=== PATIENT | female | born 1925 | race Caucasian/White ===

== ENCOUNTER 2016-04-29 15:35 | Outpatient (CLI) | END 2016-04-29 15:36 | disposition home or self-care (01) ==

== ENCOUNTER 2016-06-18 14:40 | Outpatient (CLI) | payer MEDICARE, OTHER | END 2016-06-18 14:41 | disposition home or self-care (01) | DX: R06.09 Other forms of dyspnea (principal) ==

== ENCOUNTER 2016-10-11 10:36 | Outpatient (CLI) | payer MEDICARE, OTHER | END 2016-10-11 10:37 | disposition critical access hospital (66) | LOC: EMS 10:36 | PROVIDERS: ATTEND Surgery | DX: M25.552 Pain in left hip (principal); W01.10XA Fall on same level from slipping, tripping and stumbling with subsequent striking against unspecified object, initial encounter; Y92.9 Unspecified place or not applicable | CPT/HCPCS: A0425; A0429 ==

== ENCOUNTER 2016-10-11 11:10 | Emergency (ER) | payer MEDICARE, OTHER ==
--- NOTE | 2016-10-11 11:52 | ED Physician Documentation ---
History of Present Illness - Stated complaint Stated Complaint: GLF - Chief complaint Chief Complaint: Ext Problem - Additonal information Additional information: hx from pt 89 female in garage trying to move a cement block and hit her foot causing her to fall on her right side denies hitting her head but has a throbbing DOUGHERTY (also had before the fall) and mild neck pain (also had before the fall) although she fell on the right side her pain id to L hip and thigh down to the knee otherwise was well recently - no fever cough NVD urinary sx Review of Systems Constitutional: denies: Fever, Chills Ears: reports: Loss of hearing (very UNGA - chronic) Cardiac: denies: Chest pain / pressure, Palpitations Respiratory: denies: Dyspnea, Cough GI: denies: Abdominal Pain, Nausea, Vomiting, Diarrhea Musculoskeletal: reports: Neck pain, Extremity pain, Joint pain. denies: Back pain Neurologic: reports: Headache. denies: Focal weakness, Numbness PD PAST MEDICAL HISTORY - Past Medical History Cardiovascular: Hypertension - Past Surgical History Past Surgical History: No - Present Medications Home Medications: Ambulatory Orders Medication Instructions Recorded Confirmed Atenolol 25 mg PO DAILY 09/23/15 10/11/16 Furosemide [Lasix] 120 mg PO DAILY 09/23/15 10/11/16 Lisinopril 40 mg PO DAILY 09/23/15 10/11/16 Levothyroxine [Synthroid] 75 mcg PO QDAC 10/11/16 10/11/16 - Allergies Allergies/Adverse Reactions: Allergies Allergy/AdvReac Type Severity Reaction Status Date / Time morphine Allergy Unknown Verified 10/11/16 11:22 - Social History Does the pt smoke?: No Smoking Status: Never smoker Does the pt drink ETOH?: No Does the pt have substance abuse?: No Results - Vitals Vitals: Vital Signs - 24 hr 10/11/16 10/11/16 11:11 12:59 Temperature 36.6 C Heart Rate 65 65 Respiratory 20 20 Rate Blood Pressure 184/68 H 179/53 H O2 Saturation 97 96 Oxygen O2 Source Room air - Rads (name of study) hip/pelvis Radiology: See rad report (no change) knee Radiology: See rad report (cortical irreg lateral fem condyle could be a fx - rec CT) femur Radiology: See rad report (neg) CT CS Radiology: See rad report (degen changes, lesion L thyroid rec sono for fup) CTH Radiology: See rad report (no acute) PD MEDICAL DECISION MAKING - ED course ED course: femur CT negative for fx too Departure - Departure Disposition: Home, Self Care Clinical Impression: Contusion, hip Qualifiers: Encounter type: initial encounter Laterality: left Qualified Code(s): S70.02XA - Contusion of left hip, initial encounter Knee contusion Qualifiers: Encounter type: initial encounter Laterality: left Qualified Code(s): S80.02XA - Contusion of left knee, initial encounter Condition: Good Instructions: ED Contusion Lower Ext Comments: The CT scans showed no new abnormality in your brain skull or spine - but there is a lesion in your thyroid ands the radiologist recommends that you follow up with your PMD for an ultrasound of the thyroid Thankfully the imaged of your hip femur and knee do not show a fracture either. The hardware does not appear loosened And there is no dicloation Wear the EUGENIO for support and to decrease the swelling Ice Tylenol as needed for the pain Always use the wlaker when transferring and ambulating And please follow up with your PMD about your blood pressure - it was high today
--- NOTE | 2016-10-11 12:48 | CT Preliminary Report ---
Exam: CT Head W/O IMPRESSION: Generalized age-related cortical atrophic changes without evidence of acute intracranial abnormality. [facility] SITE ID: [id number]
--- NOTE | 2016-10-11 12:51 | CT Report ---
EXAM: CT HEAD EXAM DATE: 10/11/2016 12:37 PM. CLINICAL HISTORY: Fall throbbing DOUGHERTY. COMPARISON: 09/23/2015. TECHNIQUE: Multiaxial CT images were obtained from the foramen magnum to the vertex. IV contrast: Non e. Reformats: Coronal. In accordance with CT protocol optimization, one or more of the following dose reduction techniques w ere utilized for this exam: automated exposure control, adjustment of mA and/or KV based on patient s ize, or use of iterative reconstructive technique. FINDINGS: Parenchyma: No intraparenchymal hemorrhage. No evidence of mass, midline shift, or CT findings of acu te infarction. Valdivia-white differentiation is distinct. Extraaxial Spaces: Normal for age. No subdural or epidural collections identified. Ventricles: The ventricles and cortical sulci are enlarged, consistent with age-related tissue loss. Sinuses: Imaged paranasal sinuses, orbits, and mastoids show no significant abnormality. Bones: No evidence of fracture or calvarial defect. Other: Diffuse chronic microangiopathic white matter changes are evident. IMPRESSION: Generalized age-related cortical atrophic changes without evidence of acute intracranial abnormality. [facility] Referring Provider Line: [phone] SITE ID: [id number]
--- NOTE | 2016-10-11 12:55 | CT Preliminary Report ---
Exam: CT Cervical Spine W/O Impression: Degenerative changes of the cervical spine without evidence of a fracture or dislocation. Low density lesion in the left lobe of the thyroid gland. Recommend dedicated thyroid ultrasound for further evaluation. Atherosclerosis of the great vessels. [facility] SITE ID: [id number]
--- NOTE | 2016-10-11 12:58 | CT Report ---
EXAM: CT CERVICAL SPINE WITHOUT CONTRAST DATE: 10/11/2016 12:37 PM HISTORY: Fall distracting injury. COMPARISONS: None. TECHNIQUE: Thin-section axial images were acquired of the cervical spine without contrast. Post-proce ssing: Coronal and sagittal reformats. Other: None. In accordance with CT protocol optimization, one or more of the following dose reduction techniques w ere utilized for this exam: automated exposure control, adjustment of mA and/or KV based on patient s ize, or use of iterative reconstructive technique. FINDINGS: There are mild diffuse degenerative changes of the cervical spine. There is no evidence of an acute f racture or dislocation. The visualized mastoid air cells and paranasal sinuses are clear. The visuali zed soft tissues are symmetric. There is an ill-defined area of decreased density in the left lobe of the thyroid gland measuring approximately 8 mm (image 78 of series 3). Recommend further characteriz ation with an ultrasound of the thyroid for further evaluation. The lung apices are clear. 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 Impression: Degenerative changes of the cervical spine without evidence of a fracture or dislocation. Low density lesion in the left lobe of the thyroid gland. Recommend dedicated thyroid ultrasound for further evaluation. Atherosclerosis of the great vessels. [facility] Referring Provider Line: [phone] SITE ID: [id number]
--- NOTE | 2016-10-11 13:01 | XRAY Preliminary Report ---
Exam: XR Knee 4 View LT Impression: Cortical irregularity involving the lateral femoral condyle that may represent a fracture or degenerative changes. If further characterization is needed, a CT or MRI may be beneficial. 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 [facility] SITE ID: [id number]
--- NOTE | 2016-10-11 13:03 | XRAY Report ---
EXAM: RIGHT/LEFT KNEE RADIOGRAPHY EXAM DATE: 10/11/2016 12:33 PM. CLINICAL HISTORY: Fall L knee pain. COMPARISON: None. TECHNIQUE: 3 views. FINDINGS: There is cortical irregularity involving the lateral femoral condyle that may represent a fracture or degenerative changes. Joint space narrowing osteophyte formation and subchondral sclerosis is seen involving all 3 compartm ents of the knee and most advanced in the medial compartment. Impression: Cortical irregularity involving the lateral femoral condyle that may represent a fracture or degenerative changes. If further characterization is needed, a CT or MRI may be beneficial. 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 [facility] Referring Provider Line: [phone] SITE ID: [id number]
--- NOTE | 2016-10-11 13:04 | XRAY Preliminary Report ---
Exam: XR Hip w/Pelvis 2-3V LT Impression: No significant change when compared to the previous study. [facility] SITE ID: [id number]
--- NOTE | 2016-10-11 13:06 | XRAY Report ---
EXAM: LEFT HIP AND PELVIS RADIOGRAPHY EXAM DATE: 10/11/2016 12:33 PM. HISTORY: Fall L hip pain shortened. COMPARISONS: [id number]. TECHNIQUE: 1 view of the pelvis and 1 view of the hip. 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 No acute fracture is seen. There is redemonstration of degenerative changes of the lumbar spine. Impression: No significant change when compared to the previous study. [facility] Referring Provider Line: [phone] SITE ID: [id number]
--- NOTE | 2016-10-11 13:07 | XRAY Preliminary Report ---
Exam: XR Femur 2V LT Impression: Moderate to severe degenerative changes of the left knee. No evidence of a displaced femur fracture. [facility] SITE ID: [id number]
--- NOTE | 2016-10-11 13:10 | XRAY Report ---
EXAM: LEFT FEMUR RADIOGRAPHY EXAM DATE: 10/11/2016 12:33 PM. CLINICAL HISTORY: Fall L leg pain. COMPARISON: None. TECHNIQUE: 4 views. FINDINGS: Moderate to severe degenerative changes of the left knee are noted. There are postoperative changes c onsistent with a left hip arthroplasty. No displaced fracture is identified. Impression: Moderate to severe degenerative changes of the left knee. No evidence of a displaced femur fracture. [facility] Referring Provider Line: [phone] SITE ID: [id number]
--- NOTE | 2016-10-11 15:42 | CT Preliminary Report ---
Exam: CT Lower Extremity Left W/O IMPRESSION: 1. No acute fracture. 2. Severe tricompartmental osteoarthritis. 3. Small joint effusion and small popliteal cyst. [facility] SITE ID: [id number]
--- NOTE | 2016-10-11 15:45 | CT Report ---
EXAM: LEFT KNEE CT WITHOUT CONTRAST EXAM DATE: 10/11/2016 03:24 PM. CLINICAL HISTORY: Possible lateral femoral condyle fracture. COMPARISON: Radiograph 10/11/2016. TECHNIQUE: Thin-section axial images were acquired of the knee without contrast. Post-processing: Cor onal and sagittal reformats. Other: None. In accordance with CT protocol optimization, one or more of the following dose reduction techniques w ere utilized for this exam: automated exposure control, adjustment of mA and/or KV based on patient s ize, or use of iterative reconstructive technique. FINDINGS: Bones and articular surfaces: No acute fracture. Severe joint space narrowing in the medial and later al compartments. Associated subchondral sclerosis. Tricompartmental marginal osteophyte formation mos t pronounced in the lateral compartment. Moderate joint space narrowing at the patellofemoral compart ment laterally. Some lateral tracking of the patella. Small joint effusion. Small popliteal cyst. Musculature: Some atrophy involving portions of the peroneal musculature as well as the tibialis post erior. Prominent fatty atrophy involving portions of the gastrocnemius. Other: None IMPRESSION: 1. No acute fracture. 2. Severe tricompartmental osteoarthritis. 3. Small joint effusion and small popliteal cyst. [facility] Referring Provider Line: [phone] SITE ID: [id number]
[2016-10-11] MEDS ORDERED: ACETAMINOPHEN 325 MG TABLET PO STA (16:37)
[2016-10-11] MEDS ORDERED: ACETAMINOPHEN 325 MG TABLET PO ONE (16:43)
[2016-10-11 17:26] VITALS: BP 184/86
== END 2016-10-11 17:17 | disposition home or self-care (01) ==
LOC: EDUNIT# → ED 11:10
DX: S70.02XA Contusion of left hip, initial encounter (principal); S80.02XA Contusion of left knee, initial encounter; W01.0XXA Fall on same level from slipping, tripping and stumbling without subsequent striking against object, initial encounter; Y92.015 Private garage of single-family (private) house as the place of occurrence of the external cause; I10 Essential (primary) hypertension
CPT/HCPCS: 70450; 72125; 73502; 73552; 73564; 73700; 99283; A9270

== ENCOUNTER 2016-10-15 14:05 | Outpatient (CLI) | payer MEDICARE, OTHER ==
[2016-10-15 19:25] LABS: BILIRUBIN,URINE NEGATIVE (NEGATIVE); PH,URINE 5.5 PH (5.0-7.5)
[2016-10-15 19:34] LABS: UA w/ MICROSCOPIC CHARGE YES
[2016-10-15 19:37] LABS: UR CULTURE IF IND INDICATED; WBC,URINE >25 /HPF (0-5)
== END 2016-10-15 14:06 | disposition home or self-care (01) ==
LOC: LAB.R 14:05
PROVIDERS: ATTEND Family Medicine
DX: R30.0 Dysuria (principal)
CPT/HCPCS: 81001; 81003; 87077; 87086

== ENCOUNTER 2016-10-16 08:04 | Outpatient (CLI) | payer MEDICARE, OTHER | END 2016-10-16 08:05 | disposition short-term general hospital (02) | LOC: EMS 08:04 | PROVIDERS: ATTEND Surgery | DX: R06.00 Dyspnea, unspecified (principal); R11.2 Nausea with vomiting, unspecified | CPT/HCPCS: A0425; A0429; A0888 ==

== ENCOUNTER 2017-05-18 08:00 | Outpatient (CLI) | payer MEDICARE, OTHER ==
[2017-05-18 19:20] LABS: BASOPHILS % (AUTO) 0.4 %; EOSINOPHILS # (AUTO) 0.1 10^3/uL (0.0-0.7); EOSINOPHILS % (AUTO) 1.5 %; HGB - HEMOGLOBIN 13.2 g/dL (12.0-16.0); LYMPHOCYTES # (AUTO) 1.1 10^3/uL (1.5-3.5); LYMPHOCYTES % (AUTO) 16.1 %; MEAN CORPUSCULAR HEMOGLOBIN 29.8 pg (27.0-31.0); MEAN CORPUSCULAR HGB CONC 33.1 g/dL (32.0-36.0); MEAN CORPUSCULAR VOLUME 89.9 fL (81.0-99.0); MEAN PLATELET VOLUME 10.6 fL (7.9-10.8); MONOCYTES # (AUTO) 0.6 10^3/uL (0.0-1.0); MONOCYTES % (AUTO) 9.5 %; NEUTROPHILS # (AUTO) 4.9 10^3/uL (1.5-6.6); NEUTROPHILS % (AUTO) 72.5 %; PLT - PLATELET COUNT 122 10^3/uL (130-450); RED BLOOD COUNT 4.43 10^6/uL (4.20-5.40); RED CELL DISTRIBUTION WIDTH 14.2 % (12.0-15.0); WHITE BLOOD COUNT 6.8 x10^3/uL (4.8-10.8)
[2017-05-18 19:56] LABS: ALBUMIN 4.2 g/dL (3.2-5.5); ALBUMIN/GLOBULIN RATIO 1.4 (1.0-2.2); ALKALINE PHOSPHATASE 53 IU/L (42-121); ALT ALANINE AMINOTRANSFERASE 12 IU/L (10-60); AST ASPARTATE AMINOTRANSFERASE 17 IU/L (10-42); BILIRUBIN,TOTAL 0.5 mg/dL (0.2-1.0); BUN - BLOOD UREA NITROGEN 38 mg/dL (6-20); CALCIUM 9.6 mg/dL (8.5-10.3); CARBON DIOXIDE - CO2 27 mmol/L (21-32); CHLORIDE 102 mmol/L (101-111); CRP - C-REACTIVE PROTEIN < 1.0 mg/dL (0-1.0); GFR - MDRD 52 (>89); GLUCOSE 116 mg/dL (70-100); SODIUM 139 mmol/L (135-145); TOTAL PROTEIN 7.3 g/dL (6.7-8.2)
== END 2017-05-18 08:01 | disposition home or self-care (01) ==
LOC: LAB.WCP 08:00
PROVIDERS: ATTEND Family Medicine
DX: R42 Dizziness and giddiness (principal)
CPT/HCPCS: 36415; 80053; 85025; 85651; 86140

== ENCOUNTER 2017-06-08 07:33 | Outpatient (CLI) | payer MEDICARE, OTHER | END 2017-06-08 07:34 | disposition short-term general hospital (02) | LOC: EMS 07:33 | PROVIDERS: ATTEND Surgery | DX: M54.5 Low back pain (principal); M79.605 Pain in left leg | CPT/HCPCS: A0425; A0429; A0888 ==

== ENCOUNTER 2017-07-21 09:31 | Outpatient (CLI) | payer MEDICARE, OTHER | END 2017-07-21 09:32 | disposition short-term general hospital (02) | LOC: EMS 09:31 | PROVIDERS: ATTEND Surgery | DX: R42 Dizziness and giddiness (principal) | CPT/HCPCS: A0425; A0429; A0888 ==

== ENCOUNTER 2017-08-01 10:33 | Outpatient (CLI) | payer MEDICARE, OTHER | END 2017-08-01 10:34 | disposition short-term general hospital (02) | LOC: EMS 10:33 | PROVIDERS: ATTEND Surgery | DX: R51 Headache (principal); R26.81 Unsteadiness on feet | CPT/HCPCS: A0425; A0429; A0888 ==